=== PATIENT | female | born 2000 | race American Indian/Alaskan Native ===

== ENCOUNTER 2021-02-02 21:32 | Emergency (ER) | payer BC ==
--- NOTE | 2021-02-03 04:14 | Ultrasound Report ---
Pelvic ultrasound transvaginal INDICATION: Vaginal bleeding FINDINGS: Uterus measures 5.9 x 3.4 x 4.1 cm. Uterus is retroverted. Endometrial is difficult to defi ne measuring 5 mm. Ovaries are normal in size and appearance. There is an area of vascularity in the junction between endometrium and myometrium anteriorly uterus small amount of free fluid is seen cul- de-sac IMPRESSION: 1. Patient status post pills at 9-10 weeks gestational age. No gestational sac is seen. Ther e is increased vascularity seen at the junction between the endometrium myometrium in the anterior as pect of the uterus. Small amount of free fluid is seen in the cul-de-sac. Follow-up recommended. Signer Name: Ricardo Kiran MD Signed: 02/03/2021 4:10 AM Workstation Name: [id number]
--- NOTE | 2021-02-03 04:14 | Ultrasound Report ---
Pelvic ultrasound INDICATION: Vaginal bleeding FINDINGS: Uterus measures 5.9 x 3.4 x 4.1 cm. Uterus is retroverted. Endometrial is difficult to defi ne measuring 5 mm. Ovaries are normal in size and appearance. There is an area of vascularity in the junction between endometrium and myometrium anteriorly uterus small amount of free fluid is seen cul- de-sac IMPRESSION: 1. Patient status post pills at 9-10 weeks gestational age. No gestational sac is seen. Ther e is increased vascularity seen at the junction between the endometrium myometrium in the anterior as pect of the uterus. Small amount of free fluid is seen in the cul-de-sac. Follow-up recommended. Signer Name: Ricardo Kiran MD Signed: 02/03/2021 4:09 AM Workstation Name: [id number]
[2021-02-03 06:06] LABS: Bilirubin,Urine TNR (Negative); Blood,Urine TNR (Negative); PH,Urine TNR (5.0-7.0); Protein,Urine TNR mg/dL (Negative); RBC,Urine > 182.0 /HPF (0.0-6.0); Urobilinogen,Urine TNR mg/dL (<2.0)
[2021-02-03 06:07] LABS: Color,Urine TNR (Yellow)
[2021-02-03 06:08] LABS: HCG Qualitative,Urine Negative (Negative)
[2021-02-03] MEDS ORDERED: cephALEXin 500 MG CAP PO ONE (06:15)
--- NOTE | 2021-02-03 06:20 | Emergency Department Report ---
ED Female HPI - General Chief complaint: Urogenital-Female Stated complaint: HEAVY BLEEDING Source: patient Mode of arrival: Ambulatory - History of Present Illness Initial comments: Patient is a A1 20-year-old -[place] female with no past medical history and who is 1 month s/p medical presents to the ED with persistent heavy vaginal bleeding and pelvic pain for the last 1 month, worse in the last 3 days. Patient states that she contacted her [employer] [employer] physician who advised her to come to the ED for evaluation. Patient denies dizziness, syncope, fever, chills, nausea, vomiting, low back pain, dysuria, urinary frequency and urgency, diarrhea, cough, sore throat, headache, vaginal discharge or headache. MD Complaint: vaginal bleeding, pelvic pain -: Sudden, days(s) (3), month(s) (1) Location: suprapubic, other (Vaginal) Radiation: non-radiating Severity: severe Severity scale (0 -10): 7 Quality: cramping, sharp Consistency: constant Improves with: none Worsens with: none Are you Now?: No Associated Symptoms: denies other symptoms, vaginal bleeding, abdominal pain (Suprapubic pain). denies: vaginal discharge, nausea/vomiting, fever/chills, headaches, loss of appetite, dysuria, hematuria, rash, seizure, shortness of breath, syncope, weakness, other - Related Data Sexually active: Yes : 1 Para: 0 A: 1 Previous Rx's Medication Instructions Recorded Last Taken Type Ibuprofen [Motrin] 800 mg PO Q8HR PRN #30 tablet 02/03/21 Unknown Rx cephALEXin [Keflex] 500 mg PO Q8HR #30 cap 02/03/21 Unknown Rx Allergies Allergy/AdvReac Type Severity Reaction Status Date / Time No Known Allergies Allergy Verified 02/03/21 06:51 ED Review of Systems ROS: Stated complaint: HEAVY BLEEDING Other details as noted in HPI Constitutional: denies: chills, fever Eyes: denies: eye pain, eye discharge, vision change ENT: denies: ear pain, throat pain Respiratory: denies: cough, shortness of breath, wheezing Cardiovascular: denies: chest pain, palpitations Endocrine: no symptoms reported Gastrointestinal: abdominal pain (Pelvic pain). denies: nausea, vomiting, diarrhea Genitourinary: frequency, hematuria, abnormal menses (Heavy vaginal bleeding). denies: urgency, dysuria, discharge Musculoskeletal: denies: back pain, joint swelling, arthralgia Skin: denies: rash, lesions Neurological: denies: headache, weakness, paresthesias Psychiatric: denies: anxiety, depression Hematological/Lymphatic: denies: easy bleeding, easy bruising ED Past Medical Hx - Medications Home Medications: Home Medications Medication Instructions Recorded Confirmed Last Taken Type Ibuprofen [Motrin] 800 mg PO Q8HR PRN #30 tablet 02/03/21 Unknown Rx cephALEXin [Keflex] 500 mg PO Q8HR #30 cap 02/03/21 Unknown Rx ED Physical Exam - General General appearance: alert, in no apparent distress - Head Head exam: Present: atraumatic, normocephalic, normal inspection - Eye Eye exam: Present: normal appearance, PERRL, EOMI Pupils: Present: normal accommodation - ENT ENT exam: Present: normal exam, normal orophraynx, mucous membranes moist, TM's normal bilaterally, normal external ear exam - Neck Neck exam: Present: normal inspection, full ROM - Respiratory Respiratory exam: Present: normal lung sounds bilaterally. Absent: respiratory distress, wheezes, rales, rhonchi, chest wall tenderness, accessory muscle use, decreased breath sounds, prolonged expiratory - Cardiovascular Cardiovascular Exam: Present: regular rate, normal rhythm. Absent: systolic murmur, diastolic murmur, rubs, gallop - GI/Abdominal GI/Abdominal exam: Present: soft, normal bowel sounds. Absent: distended, tenderness, guarding, rebound, rigid, hyperactive bowel sounds, hypoactive bowel sounds, organomegaly - Bi-manual exam: Present: other (Pelvic exam deferred at this time) - Extremities Exam Extremities exam: Present: normal inspection, full ROM, normal capillary refill - Back Exam Back exam: Present: normal inspection - Neurological Exam Neurological exam: Present: alert, oriented X3 - Psychiatric Psychiatric exam: Present: normal affect, normal mood - Skin Skin exam: Present: warm, dry, intact, normal color. Absent: rash ED Course Vital Signs 02/02/21 02/03/21 23:21 07:00 Temperature 98.1 F Pulse Rate 79 82 Respiratory 16 16 Rate Blood Pressure 102/58 [Right] O2 Sat by Pulse 99 100 Oximetry ED Medical Decision Making - Lab Data Result diagrams: 02/03/21 00:01 02/03/21 00:00 - Radiology Data Radiology results: report reviewed, image reviewed [facility] [address] [place] [address] Ultrasound Report Signed Patient: RAJINDER CAMP MR#: [id number] 8 : 2000 Acct:[id number] Age/Sex: 20 / F ADM Date: 02/02/21 Loc: ED Attending Dr: Ordering Physician: CATIE LESTER MD Date of Service: 02/03/21 Procedure(s): US transvaginal Accession Number(s): [id number] cc: CATIE LESTER MD Pelvic ultrasound transvaginal INDICATION: Vaginal bleeding FINDINGS: Uterus measures 5.9 x 3.4 x 4.1 cm. Uterus is retroverted. Endometrial is difficult to define measuring 5 mm. Ovaries are normal in size and appearance. There is an area of vascularity in the junction between endometrium and myometrium anteriorly uterus small amount of free fluid is seen cul-de-sac IMPRESSION: 1. Patient status post pills at 9-10 weeks gestational age. No gestational sac is seen. There is increased vascularity seen at the junction between the endometrium myometrium in the a nterior aspect of the uterus. Small amount of free fluid is seen in the cul-de-sac. Follow-up recommended. Signer Name: Ricardo Kiran MD Signed: 02/03/2021 4:10 AM Workstation Name: [id number] Transcribed By: CW Dictated By: HANNAH KIRAN MD Electronically Authenticated By: HANNAH KIRAN MD Signed Date/Time: 02/03/21409 DD/ 8 TD/TT: - Medical Decision Making This is a A1 20-year-old -[place] female with no past medical history and who is 1 month s/p medical presents to the ED with persi stent heavy vaginal bleeding and pelvic pain for the last 1 month, worse in the last 3 days. Patient states that she contacted her [employer] physician who advised her to come to the ED for evaluation. In the ED, patient is alert and oriented x3 and is not in any distress. Lab test results were reviewed and are all nonactionable. Transvaginal ultrasound showed no gestational sac is seen. There is increased vascularity seen at the junction between the endometrium myometrium in the anterior aspect of the uterus. Small amount of free fluid is seen in the cul-de-sac. Follow-up recommended. Urinalysis showed significant urinary tract infection. Patient was therefore discharged home on antibiotics and pain medications and advised to follow-up with her primary care physician or [facility] [employer] physician in 7 to 10 days for reevaluation or return to the ED immediately if symptoms get worse. - Differential Diagnosis ; UTI; ovarian cyst; tubo-ovarian abscess; PID; Critical care attestation.: If time is entered above; I have spent that time in minutes in the direct care of this critically ill patient, excluding procedure time. ED Disposition Clinical Impression: Dysfunctional uterine hemorrhage, Acute urinary tract infection, Dysmenorrhea Disposition: TO HOME OR SELFCARE Is pt being admited?: No Does the pt Need Aspirin: No Condition: Stable Instructions: Urinary Tract Infection, Adult, [id number], Abnormal Uterine Bleeding, [id number], Dysmenorrhea, [id number] Additional Instructions: All lab test results were reviewed and are all nonactionable except for urinalysis that showed significant urinary tract infection. Transvaginal ultrasound showed no evidence of gestational sac. Therefore take medications with food, drink plenty of fluids and follow-up with your [employer] physician in 5 to 7 days for reevaluation or return to the ED immediately if symptoms get worse. Prescriptions: cephALEXin [Keflex] 500 mg PO Q8HR #30 cap Ibuprofen [Motrin] 800 mg PO Q8HR PRN #30 tablet PRN Reason: Pain , Severe (7-10) Referrals: OTONIEL PICHARDO MD [Staff Physician] - 3-5 Days Forms: Work/School Release Form(ED) Time of Disposition: 06:26 Print Language: ARMENIAN
[2021-02-03] MEDS ORDERED: cephALEXin 500 MG CAP ONE ×2 (06:44→06:46)
[2021-02-03 08:08] VITALS: BP 102/58
[2021-02-03 10:10] LABS: Basophils # (Auto) 0.1 K/mm3 (0.0-0.1); Eosinophils # (Auto) 0.1 K/mm3 (0.0-0.4); Eosinophils % (Auto) 1.6 % (0.0-4.3); Hematocrit 30.7 % (30.3-42.9); Hemoglobin 10.3 gm/dl (10.1-14.3); Lymphocytes # (Auto) 2.7 K/mm3 (1.2-5.4); Lymphocytes % (Auto) 33.9 % (13.4-35.0); Mean Corpuscular HGB Conc 34 % (30-34); Mean Corpuscular Volume 91 fl (79-97); Monocytes # (Auto) 0.5 K/mm3 (0.0-0.8); Monocytes % (Auto) 6.4 % (0.0-7.3); Platelet Count 306 K/mm3 (140-440); Red Blood Count 3.36 M/mm3 (3.65-5.03); Red Cell Distribution Width 14.9 % (13.2-15.2)
[2021-02-03 10:39] LABS: Blood Urea Nitrogen 7 mg/dL (7-17)
[2021-02-03 10:40] LABS: Alanine Aminotransferase 11 units/L (7-56); Albumin 4.1 g/dL (3.9-5); BUN/Creatinine Ratio 12; Calcium 9.1 mg/dL (8.4-10.2)
[2021-02-03 10:41] LABS: Hemolysis Index 3
[2021-02-03 13:14] LABS: INR 0.98 (0.87-1.13); Partial Thromboplastin Time 30.4 Sec. (24.2-36.6)
== END 2021-02-03 07:10 | disposition home or self-care (01) ==
LOC: ED 21:32
DX: N39.0 Urinary tract infection, site not specified (principal); N94.6 Dysmenorrhea, unspecified; N93.8 Other specified abnormal uterine and vaginal bleeding; Z79.899 Other long term (current) drug therapy
CPT/HCPCS: 36415; 76830; 76856; 80053; 81001; 81025; 85025; 85610; 85730; 87086